=== PATIENT | male | born 1975 | race Caucasian/White ===

== ENCOUNTER 2019-05-08 19:11 | Observation (INO) ==
[2019-05-08 19:49] LABS: Basophils # (auto) 0.01 K/uL (0-0.2); Basophils % (auto) 0.1 %; Eosinophils # (auto) 0.01 K/uL (0-0.5); Eosinophils % (auto) 0.1 %; Hematocrit (blood only) 43.7 % (42-52); Hemoglobin 15.2 g/dL (14.0-18.0); Immature Granulocytes # (auto) 0.05 K/uL (0.00-0.02); Immature Granulocytes % (auto) 0.3 %; Lymphocytes # (auto) 1.88 K/uL (1.2-3.4); Lymphocytes % (auto) 11.3 %; Mean Corpuscular Hemoglobin 31.9 pg (25-34); Mean Corpuscular Hgb Conc 34.8 g/dL (32-36); Mean Corpuscular Volume 91.8 fL (80-100); Monocytes # (auto) 0.95 K/uL (0.11-0.59); Monocytes % (auto) 5.7 %; Neutrophils # (auto) 13.73 K/uL (1.4-6.5); Neutrophils % (auto) 82.5 %; Platelet Count 233 K/uL (130-400); RDW Coefficient of Variation 13.5 % (11.5-14.5); RDW Standard Deviation 44.9 fL (36.4-46.3); Red Blood Count 4.76 M/uL (4.7-6.1); White Blood Count 16.63 K/uL (4.8-10.8)
[2019-05-08 19:57] LABS: Appearance Urine Clear (Clear); Bilirubin Urine Negative (Negative); Blood Urine Negative (Negative); Color Urine Yellow; Glucose Urine UA Negative (Negative); Ketones Urine Negative (Negative); Leukocyte Esterase Urine Negative (Negative); Nitrite Urine Negative (Negative); Protein Urine Negative (Negative); Specific Gravity Urine 1.011 (1.000-1.030); Urobilinogen Urine Negative (Negative); pH Urine 6.5 (4.5-7.5)
[2019-05-08 20:06] LABS: Albumin Level 4.6 gm/dl (3.4-5.0); BUN Creatinine Ratio 7.6 (10-20); Creatinine Clr Calc Pharmacy 103.3 ml/min; Est GFR (African American) 99.4; Est GFR (Non-African American) 85.8; Potassium 3.4 mmol/L (3.5-5.1)
[2019-05-08 20:09] LABS: Albumin Globulin Ratio 1.2 (0.9-2); Globulin 3.8 gm/dl (2.5-4.0); Total Protein 8.4 gm/dl (6.4-8.2)
[2019-05-08] MEDS ORDERED: IOVERSOL 100ml IV PRN (20:24)
[2019-05-08] MEDS ORDERED: KETOROLAC TROMETHAMINE 15 MG/ML VIAL IV ONE (20:26)
[2019-05-08] MEDS ORDERED: SODIUM CHLORIDE 0.9% 1000ML 1,000 ML IV ONE (20:26)
[2019-05-08] MEDS ORDERED: ONDANSETRON INJ 2 MG/ML 2 ML VIAL IV STA ×2 (20:26→22:10)
--- NOTE | 2019-05-08 20:44 | CT Scan Report ---
CT abd pelvis IV con only CT DOSE: 529.02 mGy.cm HISTORY: Flank pain rlq abd pain TECHNIQUE: Multiaxial CT images of the abdomen and pelvis were performed following the use of intrave nous contrast. A dose lowering technique was utilized adhering to the principles of ALARA. COMPARISON STUDY: None. FINDINGS: Lung bases are clear. Liver spleen and pancreas appear unremarkable. There are several smal l hepatic cyst. Kidneys are negative for hydronephrosis. Abdominal bowel pattern is nonobstructive. The appendix is medial and slightly inferior to the cecum. It contains an appendicolith measuring 1 c m. The appendix is distended to approximately 12 mm. Mild periappendiceal infiltrative change. No gretta dence for drainable abscess or collection. No significant free fluid within the pelvic cul-de-sac. Bladder is midline. IMPRESSION: 1. Acute appendicitis with the appendix is distended to 1.2 cm. 2. Appendicolith. 3. Mild/moderate Appendiceal infiltrative change. 4. No evidence for abscess or collection. ACT 112: Negative or not required by law. The above report was generated using voice recognition software. It may contain grammatical, syntax or spelling errors. Electronically signed by: Chevy Page M.D. 05/08/2019 8:42 PM
[2019-05-08] MEDS ORDERED: MoRPHine SULFATE 4 MG/ML 1 ML CARP\\VIAL IV STA (22:10)
--- NOTE | 2019-05-08 22:18 | History & Physical Report ---
Date of Service May 08, 2019 Assessment & Plan (1) Acute appendicitis with localized peritonitis: 43-year-old male with acute nonperforated appendicitis. Discussed his options to include surgical management versus antibiotics of observation, patient elects for surgery. Unfortunately, he drank 24 ounces of iced tea prior to arrival and we would need to defer surgery to the middle the night. We will plan for first case tomorrow morning. Plan for laparoscopic appendectomy The risks of the procedure were discussed to include but not limited to bleeding, infection, normal appendix, conversion to open, damage to surrounding structures, need for future or more extensive surgery, abscess, and the risk of anesthesia Admit to observation on the [facility] floor Patient has a history of mild hives with cefprozil and clindamycin, therefore will prescribe Zosyn as is a low cross-reactivity hives is a B type reaction N.p.o. Scheduled Tylenol IV PRN morphine for pain Diagnosis, details the procedure and recovery, plan of care discussed the patient, all questions were answered, the patient expressed understanding agrees the plan of care as stated History of Present Illness Primary Care Provider: Jorgito Tay MD 43-year-old male presented to the emergency department with abdominal pain. He started with periumbilical pain around 8:00 last night. Sometime today this migrated to the right lower quadrant. He feels bloated. He last ate around 1600, and drank 24 ounces of iced tea at 2000. He had a colonoscopy in the past due to concern for diverticulosis and an anal fissure. No personal or family history of Crohn's disease. He denies any similar symptoms in the past. Allergies Allergy/AdvReac Type Severity Reaction Status Date / Time cefprozil Allergy Intermediate Hives Verified 05/08/19 19:41 clindamycin Allergy Intermediate Hives Verified 05/08/19 19:41 Home Medications Home Medications Medication Instructions Recorded Confirmed Type multivitamin 1 tab PO QAM 01/07/19 05/08/19 History emtricitabine-tenofovir alafen 1 tab PO QAM 05/08/19 05/08/19 History [Descovy] Past Med/Surg History Medical History Abdominal pain Social History Preferred Language: Sami Communication Ability: Effective Beliefs That Will Affect Care: None marital status: Single Current Living Situation: Alone current occupational status: employed current occupation: [employer] Feels Safe at Home: Yes Smoking Status: Never smoker Hx Alcohol Use: Yes Alcohol Intake Frequency: Holidays/Special Occasions Hx Substance Use: No Childhood Exposure to Second-Hand Smoke: Yes during the past year weight has: remained stable Dental Care, Regularly: Yes Physical Activity Frequency: 3-4 Times per Week Seatbelt Use: always Sunscreen Use: Yes Do you think of yourself as: lesbian/evans/homosexual Review of Systems Review of Systems: All systems reviewed & are unremarkable except as noted in HPI & below Physical Exam Constitutional: WD/WN, vitals as above Eyes: PERRL, conjunctivae normal, anicteric sclerae ENMT: external ear and nose normal, oropharynx normal Neck: trachea midline, no thyromegaly Respiratory: normal respiratory effort, lungs clear to auscultation Cardiovascular: RRR, no murmur, no edema Gastrointestinal (Abdomen): Percussion/Palpation: + abdomen tender (Tender to palpation in the right lower quadrant with guarding no McBurney's), + guarding, abdomen soft and + hernia (Small umbilical hernia); abdomen not rigid and no hepatosplenomegaly Musculoskeletal: no cyanosis or clubbing, extremities motor strength 5/5 Skin: no rashes, warm and dry Neurologic: PERRL, EOMI, accommodation nl, no face palsy, no dysarthria Psychiatric: A+Ox3, euthymic affect Lymphatic: no cervical or axillary lymphadenopathy Results & Data Vital Signs (Past 12 Hours) Vital Signs Temp Pulse Pulse Resp BP BP Pulse Ox 05/08/19 22:06 97 H 19 141/91 H 93 05/08/19 20:35 94 H 97 H 17 128/85 92 05/08/19 19:18 36.8 C 111 H 18 128/75 92 Laboratory Results Laboratory Results - last 24 hr 05/08/19 05/08/19 05/08/19 Unknown Unknown Unknown WBC 16.63 H RBC 4.76 Hgb 15.2 Hct 43.7 MCV 91.8 MCH 31.9 MCHC 34.8 RDW Std Deviation 44.9 RDW Coeff of Tim 13.5 Plt Count 233 MPV 10.0 Immature Gran % (Auto) 0.3 Neut % (Auto) 82.5 Lymph % (Auto) 11.3 [place] % (Auto) 5.7 Eos % (Auto) 0.1 Baso % (Auto) 0.1 Immature Gran # (Auto) 0.05 H Neut # (Auto) 13.73 H Lymph # (Auto) 1.88 [place] # (Auto) 0.95 H Eos # (Auto) 0.01 Baso # (Auto) 0.01 Sodium 137 Potassium 3.4 L Chloride 101 Carbon Dioxide 28 Anion Gap 8.0 BUN 8 Creatinine 1.07 Est Cr Clr Drug Dosing 103.3 Est GFR ( Amer) 99.4 Est GFR (Non-Af Amer) 85.8 BUN/Creatinine Ratio 7.6 L Glucose 108 H Calcium 10.0 Total Bilirubin 1.0 AST 22 ALT 32 Alkaline Phosphatase 74 Total Protein 8.4 H Albumin 4.6 Globulin 3.8 Albumin/Globulin Ratio 1.2 Lipase 163 Urine Color Yellow Urine Appearance Clear Urine pH 6.5 Ur Specific [place] 1.011 Urine Protein Negative Urine Glucose (UA) Negative Urine Ketones Negative Urine Blood Negative Urine Nitrite Negative Urine Bilirubin Negative Urine Urobilinogen Negative Ur Leukocyte Esterase Negative Diagnostic Findings Patient: CRESENCIO MCGINNIS Date: 05/08/19 MR#: [id number]: [address] [place] [address] Acct ID:[id number]: Date: 1975[facility] Zip: [place] [address] Age: 43Location: ED Sex: M Room/Bed: Att Phy:Diagnosis: STOMACH PAIN Wendy Phy: Jorgito Tay MDService Date: 05/08/19 Fam Phy:Interpreting Phy: Chevy Page MD Admit Phy: Ordering Phy: Darron Andrew DO cc: ~ CT abd pelvis IV con only CT DOSE: 529.02 mGy.cm HISTORY: Flank pain rlq abd pain TECHNIQUE: Multiaxial CT images of the abdomen and pelvis were performed following the use of intravenous contrast. A dose lowering technique was utilized adhering to the principles of ALARA. COMPARISON STUDY: None. FINDINGS: Lung bases are clear. Liver spleen and pancreas appear unremarkable. There are several small hepatic cyst. Kidneys are negative for hydronephrosis. Abdominal bowel pattern is nonobstructive. The appendix is medial and slightly inferior to the cecum. It contains an appendicolith measuring 1 cm. The appendix is distended to approximately 12 mm. Mild periappendiceal infiltrative change. No evidence for drainable abscess or collection. No significant free fluid within the pelvic cul-de-sac. Bladder is midline. IMPRESSION: 1. Acute appendicitis with the appendix is distended to 1.2 cm. 2. Appendicolith. 3. Mild/moderate Appendiceal infiltrative change. 4. No evidence for abscess or collection. Code Status & VTE Plan VTE Prophylaxis Plan VTE Prophylaxis will be ordered: Yes PG Care Time/CCT Total # of Minutes Spent Total Time Spent with Patient: Total time spent is greater than 50% in coordination of care (as documented) at patient's floor/unit and/or counseling patient:
--- NOTE | 2019-05-08 22:28 | Anesthesiology Consultation ---
Date of Service May 08, 2019 Otherwise healthy On [place]cov[place] for HIV PrEP Appendectomy planned for first case Sunday morning 05/09/19. Assessment & Plan (1) Encounter for pre-operative examination: Chart Review Chart Review: Acceptable Risk for Surgery and Patient NOT seen in Pre Admission Testing Consults Requested none History Height/Weight Height: 5 ft 10 in Weight: 91.4 kg Allergies Allergy/AdvReac Type Severity Reaction Status Date / Time cefprozil Allergy Intermediate Hives Verified 05/08/19 19:41 clindamycin Allergy Intermediate Hives Verified 05/08/19 19:41 Medications Home Medications Medication Instructions Recorded Confirmed Last Taken multivitamin 1 tab PO QAM 01/07/19 05/08/19 05/08/19 emtricitabine-tenofovir alafen 1 tab PO QAM 05/08/19 05/08/19 05/08/19 [Descovy] Active Medications Generic Name Dose Route Start Last Admin Trade Name Freq PRN Reason Stop Dose Admin Ioversol 93 ml 05/08/19 20:24 05/08/19 20:25 Optiray 320 100ml IV 05/12/19 20:23 93 ml ONCE PRN Administration Interaction Checking Past Medical History Medical History Abdominal pain Acute appendicitis with localized peritonitis Social History Smoking Status: Never smoker Hx Alcohol Use: Yes Hx Substance Use: No Physical Exam Vital Signs Last Vital Signs Temp 36.8 C 05/08/19 19:18 Pulse 97 H 05/08/19 22:06 Resp 19 05/08/19 22:06 BP 141/91 H 05/08/19 22:06 Pulse Ox 93 05/08/19 22:06 Testing Laboratory Results 05/08/19 Unknown 05/08/19 Unknown Urine Color Yellow 05/08/19 Unknown Urine Appearance Clear (Clear) 05/08/19 Unknown Urine pH 6.5 (4.5-7.5) 05/08/19 Unknown Ur Specific [place] 1.011 (1.000-1.030) 05/08/19 Unknown Urine Protein Negative (Negative) 05/08/19 Unknown Urine Glucose (UA) Negative (Negative) 05/08/19 Unknown Urine Ketones Negative (Negative) 05/08/19 Unknown Urine Nitrite Negative (Negative) 05/08/19 Unknown Ur Leukocyte Esterase Negative (Negative) 05/08/19 Unknown
[2019-05-08] MEDS ORDERED: MoRPHine SULFATE 4 MG/ML 1 ML CARP\\VIAL IV PRN (23:12)
[2019-05-08] MEDS ORDERED: MoRPHine SULFATE 2 MG/ML CARP IV PRN (23:12)
[2019-05-08] MEDS ORDERED: PIPERACILL/TAZOBAC CONSULT ACTIVE PRN (23:12)
[2019-05-08] MEDS ORDERED: ONDANSETRON INJ 2 MG/ML 2 ML VIAL IV PRN (23:12)
[2019-05-08] MEDS ORDERED: DiphenhydrAMINE HCL 50 MG/ML VIAL IV PRN (23:12)
[2019-05-08] MEDS ORDERED: PIPERACILLIN/TAZOBACTAM 4.5 GM in DEXTROSE 5% 100 ML IV ONE (23:45)
--- NOTE | 2019-05-08 23:51 | Emergency Department Note ---
Entered by Michelle Grant acting as a scribe for Darron Andrew DO History of Present Illness General Chief complaint: Abdominal Pain Stated complaint: STOMACH PAIN Source: patient Limitations: no limitations History of Present Illness Onset (ago): day(s) 1 Location: abdomen Severity: severe Pain Consistency: + constant Maximum Pain Intensity: 7 Exacerbated By: + other (walking, sitting ) Associated symptoms: + denies other symptoms (new testicle pain and urinary symptoms ) The patient is a 43 year old male who presents to the Emergency Room with complaints of constant, severe abdominal pain that began yesterday at 20:00, about 24 hours ago. The patient reports that the pain began in his epigastric region, and it migrated into his RLQ 3-4 hours ago. He reports that sitting and walking exacerbate the pain. The patient denies any new testicle pain and urinary symptoms. No other exacerbating or remitting factors. He did drink about 24 ounces of iced tea prior to arrival. Last ate around 4 PM. 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 Beliefs That Will Affect Care: None marital status: Single Current Living Situation: Alone current occupational status: employed current occupation: [employer] Feels Safe at Home: Yes Smoking Status: Never smoker Hx Alcohol Use: Yes Alcohol type: beer Alcohol Intake Frequency: Holidays/Special Occasions Hx Substance Use: No Childhood Exposure to Second-Hand Smoke: Yes during the past year weight has: remained stable Dental Care, Regularly: Yes Physical Activity Frequency: 3-4 Times per Week Seatbelt Use: always Sunscreen Use: Yes Do you think of yourself as: lesbian/evans/homosexual Review of Systems See HPI for pertinent positives & negatives. and A total of 10 systems reviewed and were otherwise negative Physical Exam Vital Signs Vital Signs - 24 hr 05/08/19 19:18 05/08/19 20:35 05/08/19 22:06 Temperature 36.8 C Temperature Source Oral Pulse Rate 111 H 94 H Pulse Rate [Finger] 97 H 97 H Pulse Rhythm Regular Pulse Rhythm [Finger] Regular Regular Pulse Strength [Finger] Normal Normal Respiratory Rate 18 17 19 Respiratory Effort / Characteristics Non-Labored Spontaneous Non-Labored Spontaneous Non-Labored Spontaneous Respiratory Depth Normal Normal Normal Respiratory Pattern Regular Regular Blood Pressure 128/75 Blood Pressure [Right Arm] 128/85 141/91 H Blood Pressure Mean 92 Blood Pressure Mean [Right Arm] 99 107 Blood Pressure Position [Right Arm] Lying Lying Pulse Oximetry 92 92 93 Oxygen Delivery Method Room Air Room Air Room Air Sepsis Recent Fever Within 48 Hours No Sepsis New/Unexplained Change in Mental Status No Sepsis Action Taken by Nursing No Action Required GENERAL: sitting up in bed, mild distress, holding RLQ, wearing hospital gown EYE EXAM: normal conjunctiva OROPHARYNX: no exudate, no erythema, lips, buccal mucosa, and tongue normal and mucous membranes are moist NECK: supple, no nuchal rigidity, no adenopathy, non-tender LUNGS: Clear to auscultation. Normal chest wall mechanics HEART: no murmurs, S1 normal and S2 normal ABDOMEN: abdomen soft, normo-active bowel sounds, no masses, no rebound or guarding. Tenderness in the right lower quadrant. BACK: Back is symmetrical on inspection and there is no deformity, no midline tenderness, no CVA tenderness. SKIN: no rashes and no bruising UPPER EXTREMITIES: upper extremities are grossly normal. LOWER EXTREMITIES: No pitting edema. NEURO EXAM: Normal sensorium, cranial nerves II-XII grossly intact, normal speech, no gross weakness of arms, no gross weakness of legs. Course Course ED COURSE: Vital signs were reviewed and showed tachycardia. The patients medical record was reviewed The above diagnostic studies were performed and reviewed. ED treatments and interventions as stated above. 1931: The patient was evaluated in room C02. A complete history and physical examination was performed. 2105: Upon reevaluation, the patient is stable. I discussed my findings with the patient and he understands and agrees with the treatment plan. 2109: I spoke with Dr. Pro, [facility] surgery, about the patients case. He will further evaluate the patient. Based on the patients age, coexisting illnesses, exam and lab findings the decision to treat as an inpatient was made. The patient remained stable while under my care. The patient will be evaluated for further management. Administered Medications Discontinued Medications Sodium Chloride (Nss 1000ml) 1,000 mls @ 999 mls/hr IV .Q1H1M ONE Stop: 05/08/19 21:26 Last Infusion: 05/08/19 21:44 Dose: 0 mls/hr Documented by: [id number] Admin: 05/08/19 20:39 Dose: 999 mls/hr Documented by: [id number] Ioversol (Optiray 320 100ml) 93 ml IV ONCE PRN PRN Reason: Interaction Checking Stop: 05/12/19 20:23 Last Admin: 05/08/19 20:25 Dose: 93 ml Documented by: [id number] Ketorolac Tromethamine (Toradol) 15 mg IV NOW ONE Stop: 05/08/19 20:27 Last Admin: 05/08/19 20:39 Dose: 15 mg Documented by: [id number] Morphine Sulfate (Morphine Sulfate) 4 mg IV NOW STA Stop: 05/08/19 22:11 Last Admin: 05/08/19 22:13 Dose: 4 mg Documented by: [id number] Ondansetron HCl (Zofran) 4 mg IV NOW STA Stop: 05/08/19 20:27 Last Admin: 05/08/19 22:06 Dose: Not Given Documented by: [id number] Ondansetron HCl (Zofran) 4 mg IV NOW STA Stop: 05/08/19 22:11 Last Admin: 05/08/19 22:13 Dose: Not Given Documented by: [id number] Medical Decision Making Differential Diagnosis Differential diagnoses includes but is not limited to gastritis, peptic ulcer disease, GERD, gallbladder disease, pancreatitis, small bowel obstruction, acute coronary syndrome, pericarditis, ischemic bowel, irritable bowel disease, irritable bowel syndrome, appendicitis, diverticulitis, malignancy, hernia, ur inary tract infection, torsion, perforation, trauma, infectious. Medical Records Attestation: I reviewed the patient's medical records. Home Medications Current Medication List: was personally reviewed by me Laboratory Data Attestation: I reviewed the patient's lab results. Result diagrams: 05/08/19 Unknown 05/08/19 Unknown Lab Results 05/08/19 05/08/19 05/08/19 Range/Units Unknown Unknown Unknown WBC 16.63 H (4.8-10.8) K/uL RBC 4.76 (4.7-6.1) M/uL Hgb 15.2 (14.0-18.0) g/dL Hct 43.7 (42-52) % MCV 91.8 (80-100) fL MCH 31.9 (25-34) pg MCHC 34.8 (32-36) g/dL RDW Std Deviation 44.9 (36.4-46.3) fL RDW Coeff of Tim 13.5 (11.5-14.5) % Plt Count 233 (130-400) K/uL MPV 10.0 (7.4-10.4) fL Immature Gran % (Auto) 0.3 % Neut % (Auto) 82.5 % Lymph % (Auto) 11.3 % [place] % (Auto) 5.7 % Eos % (Auto) 0.1 % Baso % (Auto) 0.1 % Immature Gran # (Auto) 0.05 H (0.00-0.02) K/uL Neut # (Auto) 13.73 H (1.4-6.5) K/uL Lymph # (Auto) 1.88 (1.2-3.4) K/uL [place] # (Auto) 0.95 H (0.11-0.59) K/uL Eos # (Auto) 0.01 (0-0.5) K/uL Baso # (Auto) 0.01 (0-0.2) K/uL Sodium 137 (136-145) mmol/L Potassium 3.4 L (3.5-5.1) mmol/L Chloride 101 (98-107) mmol/L Carbon Dioxide 28 (21-32) mmol/L Anion Gap 8.0 (3-11) BUN 8 (7-18) mg/dl Creatinine 1.07 (0.6-1.4) mg/dl Est Cr Clr Drug Dosing 103.3 ml/min Est GFR ( Amer) 99.4 Est GFR (Non-Af Amer) 85.8 BUN/Creatinine Ratio 7.6 L (10-20) Glucose 108 H (70-99) mg/dl Calcium 10.0 (8.5-10.1) mg/dl Total Bilirubin 1.0 (0.2-1) mg/dl AST 22 (15-37) U/L ALT 32 (12-78) U/L Alkaline Phosphatase 74 (45-117) U/L Total Protein 8.4 H (6.4-8.2) gm/dl Albumin 4.6 (3.4-5.0) gm/dl Globulin 3.8 (2.5-4.0) gm/dl Albumin/Globulin Ratio 1.2 (0.9-2) Lipase 163 (73-393) U/L Urine Color Yellow Urine Appearance Clear (Clear) Urine pH 6.5 (4.5-7.5) Ur Specific [place] 1.011 (1.000-1.030) Urine Protein Negative (Negative) Urine Glucose (UA) Negative (Negative) Urine Ketones Negative (Negative) Urine Blood Negative (Negative) Urine Nitrite Negative (Negative) Urine Bilirubin Negative (Negative) Urine Urobilinogen Negative (Negative) Ur Leukocyte Esterase Negative (Negative) Imaging Data Radiologist's Impression: Radiology results as stated below per my review and the radiologist's interpretation: CT abd pelvis IV con only CT DOSE: 529.02 mGy.cm HISTORY: Flank pain rlq abd pain TECHNIQUE: Multiaxial CT images of the abdomen and pelvis were performed following the use of intravenous contrast. A dose lowering technique was uti lized adhering to the principles of ALARA. COMPARISON STUDY: None. FINDINGS: Lung bases are clear. Liver spleen and pancreas appear unremarkable. There are several small hepatic cyst. Kidneys are negative for hydronephrosis. Abdominal bowel pattern is nonobstructive. The appendix is medial and slightly inferior to the cecum. It contains an appendicolith measuring 1 cm. The appendix is distended to approximately 12 mm. Mild periappendiceal infiltrative change. No evidence for drainable abscess or collection. No significant free fluid within the pelvic cul-de-sac. Bladder is midline. IMPRESSION: 1. Acute appendicitis with the appendix is distended to 1.2 cm. 2. Appendicolith. 3. Mild/moderate Appendiceal infiltrative change. 4. No evidence for abscess or collection. ACT 112: Negative or not required by law. The above report was generated using voice recognition software. It may contain grammatical, syntax or spelling errors. Electronically signed by: Chevy Page M.D. 05/08/2019 8:42 PM Blood Pressure Blood Pressure Findings: Elevated blood pressure Blood Pressure Disposition: Referred to patients primary care provider SOFIYA Levin Patient is a 43-year-old male who presents the ER for right lower quadrant abdominal pain which is been present for the past 24 hours. Pain started infraumbilically and radiated to the right lower quadrant. IV was established blood work was obtained and showed a leukocytosis of 16,000. No significant anemia. Mild hypokalemia at 3.4. LFTs bilirubin and lipase was unremarkable. UA was negative. CT abdomen pelvis shows acute appendicitis. Patient was given IV fluids and IV morphine. Patient was updated bedside. He was also given a dose of IV Toradol. Discussed with general surgery who evaluated him at bedside and admitted him to the hospitalist to take to the OR. Impression & Plan Appendicitis, Abdominal pain, Leukocytosis Discharge Plan Visit Data *Final* Discharge Date/Time: 05/08/19 22:56 Chief Complaint: Abdominal Pain Stated Complaint: STOMACH PAIN ED Provider: Darron Andrew Discharge Problem: Appendicitis, Abdominal pain, Leukocytosis Patient Disposition: Admitted As Inpatient Discharge Instructions Interventions: ED Discharge Assessment Last Done: 05/08/19 22:56 Discharge Problem: Appendicitis Qualifiers: Appendicitis type: acute appendicitis Acute appendicitis type: unspecified acute appendicitis type Qualified Code(s): K35.80 - Unspecified acute appendicitis Abdominal pain Qualifiers: Abdominal location: unspecified location Qualified Code(s): R10.9 - Unspecified abdominal pain Leukocytosis Qualifiers: Leukocytosis type: unspecified Qualified Code(s): D72.829 - Elevated white blood cell count, unspecified The scribe's documentation has been prepared under my direction and personally reviewed by me in its entirety. I confirm that the note above accurately reflects all work, treatment, procedures, and medical decision making performed by me.
[2019-05-09] MEDS: LACTATED RINGER'S 1,000 ML IV SCH ×2 (00:52→10:10)
[2019-05-09] MEDS: ACETAMINOPHEN 1,000 MG/100 ML VIAL IV SCH ×2 (00:53→10:05)
[2019-05-09] MEDS ORDERED: PIPERACILLIN/TAZOBACTAM 3.375 GM in DEXTROSE 5% 100 ML IV SCH (06:00)
--- NOTE | 2019-05-09 06:34 | Surgery Progress Note ---
Date of Service May 09, 2019 Assessment & Plan (1) Acute appendicitis with localized peritonitis: 43-year-old male with acute nonperforated appendicitis. Plan for laparoscopic appendectomy The risks of the procedure were discussed to include but not limited to bleeding, infection, normal appendix, conversion to open, damage to surrounding structures, need for future or more extensive surgery, abscess, and the risk of anesthesia Diagnosis, details the procedure and recovery, plan of care discussed the patient, all questions were answered, the patient expressed understanding agrees the plan of care as stated Subjective 43 y/o male admitted overnight with acute appendicitis. Still with pain, no changes, some pain radiating down right leg. Review of Systems Review of Systems: All systems reviewed & are unremarkable except as noted in HPI & below Physical Exam Constitutional: WD/WN, vitals as above Eyes: PERRL, conjunctivae normal, anicteric sclerae ENMT: external ear and nose normal, oropharynx normal Neck: trachea midline, no thyromegaly Respiratory: normal respiratory effort, lungs clear to auscultation Cardiovascular: RRR, no murmur, no edema Gastrointestinal (Abdomen): Percussion/Palpation: + abdomen tender (tender to palpation in right lower quadrant, guarding at mcburney's), + guarding and abdomen soft; abdomen not rigid and no hepatosplenomegaly Results & Data Vital Signs (Past 12 Hours) Vital Signs Temp Pulse Pulse Resp BP BP BP 05/09/19 06:23 36.8 C 86 16 130/80 05/08/19 23:05 37.2 C 91 H 20 138/84 05/08/19 22:06 97 H 19 141/91 H 05/08/19 20:35 94 H 97 H 17 128/85 05/08/19 19:18 36.8 C 111 H 18 128/75 Pulse Ox 05/09/19 06:23 93 05/08/19 23:05 92 05/08/19 22:06 93 05/08/19 20:35 92 05/08/19 19:18 92 PG Care Time/CCT Total # of Minutes Spent Total Time Spent with Patient: Total time spent is greater than 50% in coordination of care (as documented) at patient's floor/unit and/or counseling patient:
[2019-05-09] MEDS ORDERED: ePHEDrine sulfate 50 MG/ML SYR ONE (07:01)
[2019-05-09] MEDS ORDERED: KETOROLAC 30 MG/ML VIAL ONE (07:01)
[2019-05-09] MEDS ORDERED: fentaNYL citrate 100 MCG/2 ML VIAL ONE (07:01)
[2019-05-09] MEDS ORDERED: DEXAMETHASONE SOD INJ 4 MG/ML VIAL ONE (07:01)
[2019-05-09] MEDS ORDERED: CISATRACURIUM BESYLATE IV SOLN 2 MG/ML 10 ML VIAL IV ONE (07:01)
[2019-05-09] MEDS ORDERED: PHENYLEPHRINE 100MCG/ML 5ML SYR ONE (07:01)
[2019-05-09] MEDS ORDERED: NEOSTIGMINE METHYLSULFATE 5 MG/5 ML SYR ONE (07:01)
[2019-05-09] MEDS ORDERED: MIDAZOLAM HCL 1 MG/ML 2ML VIAL ONE (07:01)
[2019-05-09] MEDS ORDERED: ONDANSETRON INJ 2 MG/ML 2 ML VIAL ONE (07:01)
[2019-05-09] MEDS ORDERED: LIDOCAINE HCL 2% 2 ML VIAL/AMP(20MG/ML) INFIL ONE (07:01)
[2019-05-09] MEDS ORDERED: GLYCOPYRROLATE 0.2 MG/ML VIAL ONE (07:01)
[2019-05-09] MEDS ORDERED: LARYING-O-JET KIT (LTA) ONE (07:01)
[2019-05-09] MEDS ORDERED: PROPOFOL IV EMULSION 10 MG/ML 20 ML VIAL IV ONE (07:01)
[2019-05-09] MEDS ORDERED: SUCCINYLCHOLINE CHLORIDE 20 MG/ML 10 ML VIAL ONE (07:04)
[2019-05-09] MEDS ORDERED: BUPIVACAINE 0.5 % 5 MG/1 ML MPF 30ML VIAL ONE (07:15)
[2019-05-09] MEDS ORDERED: FLUMAZENIL 0.1 MG/1 ML 10 ML VIAL IV PRN (07:41)
[2019-05-09] MEDS ORDERED: HYDROmorphone INJ 1 MG/ML SYRINGE IV PRN (07:41)
[2019-05-09] MEDS ORDERED: ATROPINE SULFATE 0.1 MG/ML 10ML SYR IV PRN (07:41)
[2019-05-09] MEDS ORDERED: PROMETHAZINE HCL 12.5 MG in SODIUM CHLORIDE 0.9% 50 ML IV PRN (07:41)
[2019-05-09] MEDS ORDERED: fentaNYL citrate 100 MCG/2 ML VIAL IV PRN (07:41)
[2019-05-09] MEDS ORDERED: ePHEDrine sulfate 50 MG/ML AMP IV PRN (07:41)
[2019-05-09] MEDS ORDERED: ONDANSETRON INJ 2 MG/ML 2 ML VIAL IV PRN (07:41)
[2019-05-09] MEDS ORDERED: LABETALOL HCL IV 5 MG/ML 20ML IV PRN (07:41)
[2019-05-09] MEDS ORDERED: NALOXONE HCL 0.4 MG/1 ML VIAL/CARP IV PRN (07:41)
[2019-05-09] MEDS ORDERED: ROCURONIUM BROMIDE 10 MG/ML 5 ML VIAL ONE (08:01)
--- NOTE | 2019-05-09 08:19 | Operative Report ---
PG Post Operative Report Pre & Post Diagnosis Operation Date: 05/09/19 07:15 Pre-Op Diagnosis: APPENDICITIS Post-Op Diagnosis: APPENDICITIS I identified the patient and participated in the time-out.: Yes Procedure Operation Date: 05/09/19 07:15 Actual Procedures p Laparoscopic Appendectomy(Not Applicable) - Tyrone Pro DO, EFRAÍN Surgeon Tyrone Pro DO, EFRAÍN Dimethylaniline Sulfator Operator Rinku Reyes Estimated Blood Loss 8 Findings Consistent with Post-Op Diagnosis Acute, separative appendicitis. No obvious perforation, but proximal appendix very friable and some tearing of the serosa during retraction. Staple line healthy, good hemostasis Specimens Appendix Anesthesia Type General Complications none Disposition Accompanied Patient To Recovery: No Disposition: Recovery Room Indications 43-year-old male presented overnight with signs and symptoms of acute appendicitis. He had recently had liquids within an hour or 2 of arrival, therefore surgery was deferred to the morning. Plan for laparoscopic appendectomy. The risks of the procedure were discussed, all questions were answered, and the patient agreed to proceed with surgery as planned. Description of Procedure The patient was properly identified, consented, and taken to the operating room where he was placed in the supine position. General endotracheal anesthesia was induced. SCDs and a safety belt were placed. Preoperative antibiotics were administered. A Hernandez catheter was not placed. The patient's abdomen was prepped and draped in the standard sterile fashion. Surgical timeout was performed and all parties were in agreement that this was the correct patient and procedure to be performed and we continued as planned. A curvilinear infraumbilical incision was made with electrocautery and deepened down to the fascia with blunt dissection. There was a known asymptomatic umbilical hernia superior to the umbilicus that was not repaired. The base of the umbilicus was grasped with a Rubi and elevated towards the ceiling. An incision was made in the midline fascia with a knife and entry into the peritoneum was confirmed. Stay suture of 0 Vicryl was placed and a Bernabe trocar was inserted. The abdomen was insufflated with carbon dioxide which the patient tolerated without incident. The laparoscope was inserted and no damage from initial trocar placement was noted, no gross abnormalities were noted within the 4 quadrants the abdomen. 5 mm ports were then placed in the left lower quadrant with care not to damage the epigastric vessels, and in the suprapubic midline with care not to damage the bladder. The patient was placed in Trendelenburg position and rotated towards the left. The small bowel was swept away from the right lower quadrant. There was some fibrinous exudate and filmy adhesions of the appendix to the ileum and the abdominal wall which were taken down with blunt dissection. The cecum was grasped with an atraumatic grasper exposing the appendix. The appendix was dilated and significantly inflamed but there was no evidence of perforation. There was minimal turbid fluid in the pelvis and right lower quadrant. The appendix was very friable particularly in the middle to proximal third. There was some tearing of the serosa and possibly muscularis during retraction about a centimeter or 2 away from the base. There was no spillage. A window was created between the base of the appendix and the mesoappendix. A grissom loaded endoscopic stapler was then used to divide the appendix at its base. The staple line was inspected and appeared healthy. The harmonic scalpel was then used to divide the mesoappendix. Hemostasis was good. The appendix was placed in an Endo Catch bag and removed through the umbilical port site. The right lower quadrant and pelvis was irrigated and hemostasis was found to be good. 5 mm trochars were removed under direct visualization and the abdomen was allowed to collapse. The umbilical port site fascia was closed with 0 Vicryl suture. The wound was irrigated, and the skin of all ports was closed with 4-0 Monocryl subcuticular sutures. Dermabond was placed over the wounds. The patient was extubated in the operating room and taken to the PACU where he recovered without apparent incident. All sponge, instrument and needle counts were correct at the conclusion of the procedure. The patient tolerated the procedure well. He will be continued on oral antibiotics as an outpatient. The physician's safety assistant was present and scrubbed for the entire to the case. He was critical in positioning the patient, prepping and draping, retraction and exposure, driving the laparoscope, closure the incisions, and placement of the dressings. I attest to the content of the Intraoperative Record and any orders documented therein. Any exceptions are noted below.
--- NOTE | 2019-05-09 09:14 | Anesthesiology Progress Note ---
Date of Service May 09, 2019 Anesthesia Post Procedure Vital Signs Vital Signs: Temp Pulse Pulse Pulse Resp BP BP 05/09/19 09:00 36.5 C 80 18 05/09/19 08:50 67 16 05/09/19 08:40 65 18 05/09/19 08:30 67 16 05/09/19 08:24 36 C L 75 15 05/09/19 07:07 37.3 C 89 16 143/82 H 05/09/19 06:23 36.8 C 86 16 130/80 05/08/19 23:05 37.2 C 91 H 20 05/08/19 22:06 97 H 19 05/08/19 20:35 94 H 97 H 17 05/08/19 19:18 36.8 C 111 H 18 128/75 BP Pulse Ox 05/09/19 09:00 116/63 93 05/09/19 08:50 121/61 94 05/09/19 08:40 126/64 96 05/09/19 08:30 136/81 97 05/09/19 08:24 123/72 96 05/09/19 07:07 92 05/09/19 06:23 93 05/08/19 23:05 138/84 92 05/08/19 22:06 141/91 H 93 05/08/19 20:35 128/85 92 05/08/19 19:18 92 Pain Intensity Abdomen: Pain Intensity: 5 Transfer of Care Handoff Completed per policy Notes Mental Status: alert / awake / arousable Patient Amnestic to Procedure: Yes Nausea / Vomiting: adequately controlled Pain: adequately controlled Airway Patency, RR, SpO2: stable & adequate BP & HR: stable & adequate Hydration State: stable & adequate Anesthetic Complications: no major complications apparent
[2019-05-09] MEDS ORDERED: OXYCODONE/ACETAMINOPHEN 5mg/325mg TAB PO PRN ×2 (09:26)
[2019-05-09] MEDS ORDERED: MoRPHine SULFATE 4 MG/ML 1 ML CARP\\VIAL IV PRN (09:26)
--- NOTE | 2019-05-12 09:32 | Discharge Summary ---
Date of Service May 12, 2019 Admission HPI Per Admitting Provider 43-year-old male presented to the emergency department with abdominal pain. He started with periumbilical pain around 8:00 last night. Sometime today this migrated to the right lower quadrant. He feels bloated. He last ate around 1600, and drank 24 ounces of iced tea at 2000. He had a colonoscopy in the past due to concern for diverticulosis and an anal fissure. No personal or family history of Crohn's disease. He denies any similar symptoms in the past. Principal Diagnosis Acute appendicitis Discharge Exam Gastrointestinal (Abdomen) Inspection/Auscultation: + abdominal surgical incision (clean, dry) Percussion/Palpation: abdomen soft Discharge Data Allergies Allergy/AdvReac Type Severity Reaction Status Date / Time cefprozil Allergy Intermediate Hives Verified 05/08/19 19:41 clindamycin Allergy Intermediate Hives Verified 05/08/19 19:41 Procedures Performed Operation Date: 05/09/19 07:15 Actual Procedures p Laparoscopic Appendectomy(Not Applicable) - Tyrone Pro DO, FACS Ordered Studies 05/08/19 19:35 CT abd pelvis IV con only Stat Hospital Course (1) Appendicitis: 43 y/o male with abdominal pain had white cell count of [address] that confirmed appendicitis. He had large tea just before coming into the ED, he was admitted to the surgical service overnight and continued on IV antibiotics. He underwent laparoscopic appendectomy the next morning. By the afternoon he was tolerating regular diet and oral analgesics. He was stable for discharge. Total Time Total Time Spent Total Time Spent (In Minutes): 10 Discharge Plan Discharge Items Patient Disposition: Home - Self-Care Reason For Visit: APPENDICITIS Discharge Diagnosis: laparoscopic appendectomy Activity: As commented below Lifting: No more than 10 pounds Bathing: No limitations Driving/Machine Use: Resume 3 days after discharge Non-emergency contact: Surgeon Call non-emergency contact if: you have any medication questions, your pain is not controlled, you have a fever, your temperature is above 101.5, your wound has increased redness and your wound has increased drainage Follow-up/Referrals: Tyrone Pro DO, FACS [Physician] - (in 2 weeks, call the office to schedule) Jorgito Tay MD [Primary Care Provider] - Diet: Regular Addtl Attending Provider Instructions: Pending Studies at Discharge: No Stand-Alone Forms: My [facility], Opioid Pain Management, Work/School Release (Inpt), Smoking Cessation Medications and DC Order Prescriptions: New oxycodone-acetaminophen [Percocet] 5-325 mg tablet 1 - 2 tab PO Q4H PRN (Reason: pain, initial therapy, max 8 daily) Qty: 15 RF: 0 amoxicillin-pot clavulanate [Augmentin] 875-125 mg tablet 1 tab PO BID Qty: 14 RF: 0 Continued multivitamin [Daily Multi-Vitamin] tablet 1 tab PO QAM RF: 0 Descovy 200-25 mg tablet 1 tab PO QAM RF: 0 Discharge Orders: Discharge Order (Routine); Ordered 05/09/19 Ordered By: Rinku Cotter/Other Patient Handouts: Surgery Prevent DVT After, Appendectomy Admission Data Admit Date/Time: 05/08/19 22:11 Attending Provider: Tyrone Pro Admit Provider: Tyrone Pro Primary Care Provider: Jorgito Tay Other Interventions: Discharge Summary Assessment (RN) Last Done: 05/09/19 13:13 DC Date/Time DO NOT enter until pt leaves facility: 05/09/19 14:38
== END 2019-05-09 14:38 | disposition home or self-care (01) ==
LOC: ED 19:11 → 3N 19:11